=== PATIENT | male | born 1960 | race African-American/Black ===

== ENCOUNTER 2016-10-12 07:27 | Emergency (ER) | payer OTHER ==
[~2016-10-12] VITALS: Ht 180.3 cm; Wt 79.4 kg
[2016-10-12 07:35] VITALS: BP 130/82
[2016-10-12] MEDS ORDERED: NKM (07:39)
[2016-10-12] MEDS ORDERED: Methocarbamol 750mg tab ORAL ONE (08:00)
[2016-10-12] MEDS ORDERED: ROBAXIN-750750 MG PO (09:41)
[2016-10-12] MEDS ORDERED: IBUPROFEN600 MG ORAL (09:41)
--- NOTE | 2016-10-12 09:53 | Diagnostic Imaging Report ---
Indication: Back pain Comparison: None Findings: 3 views of the lumbar spine were obtained. Multilevel narrowing of intervertebral disks and associated endplate and facet osteophytes are present. No malalignment identified. No acute fracture definitely seen. Impression: Mild spondylosis. No acute injury appreciated.
[2016-10-12 10:05] VITALS: BP 127/81
--- NOTE | 2016-10-16 14:33 | Emergency Room Report ---
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 there was no other fall or trauma Allergies: Coded Allergies: No Known Allergies (Unverified , 10/12/16) Patient History Past Medical History: see triage record Pertinent Family History: none Reviewed Nursing Documentation: PMH: Agreed, PSxH: Agreed Nursing Documentation-PM Past Medical History: No Stated History Review of Systems All Other Systems: negative except mentioned in HPI Physical Exam Vital Signs Date Time Temp Pulse Resp B/P Pulse Ox O2 Delivery O2 Flow Rate FiO2 10/12/16 07:31 97.9 72 16 136/80 97 Room Air Sp02 EP Interpretation: reviewed, normal General Appearance: well appearing, no apparent distress Head: normocephalic, atraumatic Eyes: bilateral eye EOMI, bilateral eye PERRL ENT: hearing grossly normal, normal pharynx, TMs + canals normal, uvula midline Neck: full range of motion - However the patient had some discomfort in the right paraspinal area C2,3,4, supple, no meningismus, no bony tend Respiratory: lungs clear, normal breath sounds, no rhonchi, no respiratory distress, no retraction, no accessory muscle use Cardiovascular #1: normal peripheral pulses, regular rate, rhythm, no edema, no gallop, no JVD, no murmur Gastrointestinal: normal bowel sounds, non tender, soft, no mass, no organomegaly, non-distended, no guarding, no hernia, no pulsatile mass, no rebound Genitourinary: no CVA tenderness Musculoskeletal: normal inspection - Patient does have lower L-spine paraspinal discomfort on palpation as well no midline step-off Neurologic: oriented x3, responsive, 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, motor strength/ tone normal, sensory intact Psychiatric: mood/affect normal Skin: normal color, no rash, warm/dry, palpation normal Lymphatic: normal inspection, no adenopathy Medical Decision Making Diagnostic Impression: Primary Impression: Neck pain Additional Impression: back pain ER Course Given the patient's complaints he was provided with initial imaging studies C- spine and L-spine Patient appears to have a somewhat chronic component to his presentation I do not suspect obvious meningitis or neurosurgical pathology with the examination Patient requires close outpatient followup and likely MRI for further imaging, Other X-Ray Diagnostic Results Other X-Ray Diagnostic Results #1: EP Interpretation: Yes Findings: no fractures, no dislocation, no soft tissue swelling Number of Views: 3 - C-spine Other X-Ray Diagnostic Results #2: EP Interpretation: Yes Findings: no fractures, no dislocation, no soft tissue swelling Number of Views: 3 - L-spine Last Vital Signs Date Time Temp Pulse Resp B/P Pulse Ox O2 Delivery O2 Flow Rate FiO2 10/12/16 10:05 98.4 79 16 127/81 99 Room Air Status: improved Disposition: HOME, SELF-CARE Condition: Improved Scripts Methocarbamol* (ROBAXIN-750*) 750 Mg Tablet 750 MG PO TID, #21 TAB 0 Refills Prov: REG TRAN D.O. 10/12/16 Ibuprofen* (MOTRIN*) 600 Mg Tablet 600 MG ORAL Q8H Y for For Pain, #20 TAB 0 Refills Prov: REG TRAN D.O. 10/12/16 Referrals: [facility],REFERRING (PCP) Patient Instructions: Back Pain, Adult, Cervical Sprain Additional Instructions: Patient is provided with the discharge instructions notified to follow up with primary doctor in the next 2-3 days otherwise return to the er with any worsening symptoms. REG TRAN D.O. Oct 16, 2016 14:33
--- NOTE | 2016-10-22 12:59 | Diagnostic Imaging Report ---
Indication: Neck Pain Findings: 5 views of the cervical spine were obtained. Mild degenerative changes of the cervical spine are demonstrated. This is characterized by vertebral endplate osteophyte formation and narrowing of intervertebral discs. There is no acute fracture identified. Alignment is normal. The open-mouth odontoid view shows an intact dens and good alignment of the lateral masses with respect to the body of C2. There is no soft tissue swelling. Impression: Mild spondylosis
== END 2016-10-12 10:05 | disposition home or self-care (01) ==
LOC: EMR 08:30
DX: M54.2 Cervicalgia (principal); M47.816 Spondylosis without myelopathy or radiculopathy, lumbar region
CPT/HCPCS: 72052; 72110; 99283

== ENCOUNTER 2018-10-10 07:50 | Emergency (ER) | payer OTHER ==
[~2018-10-10] VITALS: Ht 180.3 cm; Wt 78.0 kg
[~2018-10-10 07:50] MED LIST: IBUPROFEN600 MG ORAL; NKM; ROBAXIN-750750 MG PO
[2018-10-10] MEDS ORDERED: Methocarbamol 750mg tab ORAL ONE (08:15)
[2018-10-10] MEDS ORDERED: Morphine Sulfate 4mg/ml Inj (IV USE ONLY) IM ONE (08:15)
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
[2018-10-10] MEDS ORDERED: ROBAXIN-750750 MG PO (08:38)
[2018-10-10] MEDS ORDERED: NORCO 5-325 TA1 EACH ORAL (08:38)
[2018-10-10] MEDS ORDERED: IBUPROFEN600 MG ORAL (08:38)
[2018-10-10 08:39] VITALS: BP 141/86
--- NOTE | 2018-10-10 08:41 | NUR ---
ED Nurse Note:pt. was treated and cleared for d/c by ER MD pain meds given, pt. received d/c instructions with prescriptions and left ER with steady gait and friend to drive him
[2018-10-10 08:42] VITALS: BP 141/86
== END 2018-10-10 08:53 | disposition home or self-care (01) ==
LOC: EMR 08:31
DX: M25.551 Pain in right hip (principal); M79.10 Myalgia, unspecified site; M06.9 Rheumatoid arthritis, unspecified
CPT/HCPCS: 96372; 99283; J2270